=== PATIENT | male | born 1975 ===

== ENCOUNTER 2017-08-03 15:02 | Emergency (ER) | payer BC ==
--- NOTE | 2017-08-03 15:49 | ED PDOC ---
HPI: Back Time Seen by Provider: 08/03/17 15:29 Chief Complaint (Nursing): Back Pain Chief Complaint (Provider): Back pain History Per: Patient History/Exam Limitations: no limitations Onset/Duration Of Symptoms: Other (x5 months) Current Symptoms Are (Timing): Still Present Additional Complaint(s): 42 year old male presented to the ED complaining of left upper back pain radiating to the left upper chest since this morning. Patient reports he has been having back pain for the past 5 months which varies in severity and is worried about his back pain. Patient indicates he has no back pain or left upper chest pain right now and states he took motrin [employer]IST. He states he reported to this ED a couple of months ago and had obtained a upper back X-ray which had showed moderate spondolisthesis. Patient is demanding results of the previous X-ray and wants a repeat back X-ray as well as the curvature of his spine. Patient denies vomiting, diarrhea, dizziness, headache, neck pain, SOB, numbness, tingling, and any injury. No long distance travel or leg pain. PCP: no family provider Past Medical History Reviewed: Historical Data, Nursing Documentation, Vital Signs Vital Signs: Last Vital Signs Temp 98.3 F 08/03/17 15:07 Pulse 60 08/03/17 15:07 Resp 18 08/03/17 15:07 BP 121/76 08/03/17 15:07 Pulse Ox 100 08/03/17 15:07 - Medical History PMH: Hypercholesterolemia, Pneumonia - Surgical History Surgical History: Tonsillectomy - Family History Family History: States: Unknown Family Hx - Home Medications Home Medications: Ambulatory Orders Medication Instructions Recorded Albuterol 0.083% [Albuterol 0.083% 2.5 mg IH Q8 PRN #100 neb 03/29/17 Inhal An (2.5 mg/3 ml) UD] Albuterol HFA [Ventolin HFA 90 2 puff IH [id number] PRN #1 inhaler 03/29/17 mcg/actuation (8 g)] Mask, Face [Nebulizer Aerosol Mask 1 dev XX PRN PRN #1 dev 03/29/17 Adult] Nebulizer [Aeroeclipse II] 1 each MC Q8 PRN #1 each 03/29/17 Nebulizer [Aeroeclipse II] 1 each MC Q8 PRN #1 each 03/29/17 Promethazine/Codeine 5 ml PO Q12 PRN #100 ml 03/29/17 [Codeine/Promethazine 10 MG/5 Ml-6.25 MG/5 Ml] predniSONE [Prednisone] 2 tab PO DAILY #10 tab 03/29/17 - Allergies Allergies/Adverse Reactions: Allergies Allergy/AdvReac Type Severity Reaction Status Date / Time No Known Allergies Allergy Verified 08/03/17 15:07 Review of Systems ROS Statement: Except As Marked, All Systems Reviewed And Found Negative ENT: Negative for: Nose Congestion Respiratory: Negative for: Cough, Shortness of Breath Gastrointestinal: Negative for: Nausea, Vomiting, Diarrhea Musculoskeletal: Positive for: Back Pain (left upper back pain radiating to the left upper chest). Negative for: Neck Pain, Leg Pain, Other (abdominal pain or head injury) Neurological: Negative for: Numbness (or tingling), Headache, Dizziness Physical Exam - Reviewed Nursing Documentation Reviewed: Yes Vital Signs Reviewed: Yes - Physical Exam Appears: Positive for: Non-toxic, No Acute Distress Head Exam: Positive for: ATRAUMATIC Skin: Positive for: Normal Color, Warm, Dry Eye Exam: Positive for: Normal appearance Neck: Positive for: Normal, Painless ROM Cardiovascular/Chest: Positive for: Regular Rate, Rhythm. Negative for: Edema, Murmur Respiratory: Positive for: Normal Breath Sounds. Negative for: Wheezing, Respiratory Distress Gastrointestinal/Abdominal: Positive for: Normal Exam, Soft. Negative for: Tenderness Back: Positive for: Normal Inspection. Negative for: L CVA Tenderness, R CVA Tenderness Extremity: Positive for: Normal ROM. Negative for: Tenderness, Pedal Edema Neurologic/Psych: Positive for: Alert, traveling accountant II-XII, Oriented. Negative for: Motor/Sensory Deficits, Facial Droop - Laboratory Results Result Diagrams: 08/03/17 16:38 08/03/17 16:38 Interpretation Of Abn Labs: no acute - ECG ECG: Positive for: Interpreted By Me, Viewed By Me ECG Rhythm: Positive for: Normal QRS, Normal ST Segment, Sinus Rhythm O2 Sat by Pulse Oximetry: 100 (RA) Pulse Ox Interpretation: Normal - Radiology X-Ray: Interpreted by Me, Viewed By Me X-Ray Interpretation: No Acute Disease - Progress ED Course And Treament: 1737: Stable. AAOx3. Pain free. Ambulated with no issues. Medical Decision Making Medical Decision Making: Initial Impression: back pain Initial Plan: ECG CMP Troponin CBC Chest X-ray Lumbar spine X-ray Dorsal spine X-ray Scribe Attestation: Documented by Gabriel Agustin acting as a scribe for Dudley Ryan MD. Provider Scribe Attestation: All medical record entries made by the Scribe were at my direction and personally dictated by me. I have reviewed the chart and agree that the record accurately reflects my personal performance of the history, physical exam, medical decision making, and the department course for this patient. I have also personally directed, reviewed, and agree with the discharge instructions and disposition. Disposition - Clinical Impression Clinical Impression: Back pain - Patient ED Disposition Is Patient to be Admitted: No Counseled Patient/Family Regarding: Studies Performed, Diagnosis, Need For Followup - Disposition Referrals: [facility] [Outside] - 08/05/17 Disposition: Routine/Home Disposition Time: 17:37 Condition: STABLE Additional Instructions: Return if not better in 3 days. Instructions: Upper Back Pain (DC) Forms: [employer] (Tunisian), [facility] ED School/Work Excuse
[2017-08-03 16:44] LABS: BASO % 0.9 % (0.0-2.0); EOS # 0.1 K/uL (0.0-0.7); EOS % 1.9 % (0.0-4.0); HEMOGLOBIN 14.9 g/dL (12.0-18.0); LYMPH # 2.1 K/uL (1.0-4.3); LYMPH % 42.4 % (20.0-40.0); MEAN CELL VOLUME 91.1 fl (80.0-94.0); MEAN CORPUSCULAR HGB CONC 34.1 g/dL (33.0-37.0); MEAN PLATELET VOLUME 7.9 fl (7.2-11.7); MONO # 0.4 K/uL (0.0-0.8); MONO % 8.7 % (0.0-10.0); NEUT # 2.3 K/uL (1.8-7.0); NEUT % 46.1 % (50.0-75.0); NRBC % 0.1 % (0.0-0.0); RBC 4.8 Mil/uL (4.40-5.90); RED CELL DISTRIBUTION WIDTH 13.5 % (11.5-14.5); WHITE BLOOD COUNT 4.9 K/uL (4.8-10.8)
[2017-08-03 16:54] LABS: ALB/GLOB RATIO 1.3 (1.0-2.1); ALT/SGPT 39 U/L (21-72); AST/SGOT 36 U/L (17-59); BLOOD UREA NITROGEN 16 mg/dl (9-20); CALCIUM 9.2 mg/dL (8.4-10.2); GFR AFRICAN-AMERICAN > 60; GFR NON-AFRICAN AMERICAN > 60
--- NOTE | 2017-08-03 17:28 | RAD ---
HISTORY: pain COMPARISON: No prior. FINDINGS: BONES: Alignment maintained. No fracture. DISC SPACES: Limited multilevel thoracic spondylosis appreciate the mid to inferior thoracic levels with disc heights adequately preserved. SOFT TISSUES: Normal. OTHER FINDINGS: None. IMPRESSION: Mild multilevel mid to inferior thoracic spondylosis. No fracture or spondylolisthesis is encountered.
--- NOTE | 2017-08-03 17:33 | RAD ---
HISTORY: dyspnea COMPARISON: Chest radiographs 03/29/2017 TECHNIQUE: Chest PA and lateral FINDINGS: LUNGS: No active pulmonary disease. PLEURA: No significant pleural effusion identified. No pneumothorax apparent. CARDIOVASCULAR: Normal. OSSEOUS STRUCTURES: No significant abnormalities. VISUALIZED UPPER ABDOMEN: Normal. OTHER FINDINGS: None. IMPRESSION: No interval acute cardiopulmonary disease appreciated.
--- NOTE | 2017-08-03 17:33 | RAD ---
PROCEDURE: Radiographs of the Lumbar Spine. HISTORY: back pain COMPARISON: No prior. FINDINGS: BONES: Mild straightening of the normal curvature. No listhesis. No fracture. DISC SPACES: Unremarkable. OTHER FINDINGS: None. IMPRESSION: Mild straightening of normal curvature. No fracture or spondylolisthesis identified.
[2017-08-03 18:19] VITALS: BP 128/76; PULSE 78; RESP 19; TEMP 97; O2SAT 98
--- NOTE | 2017-08-04 11:20 | CARD ---
APPROVED REPORT EKG Measurement Heart [id number] <Conclusion> Sinus bradycardia Otherwise normal ECG
== END 2017-08-03 18:19 | disposition home or self-care (01) ==
LOC: H.ER 15:02
DX: M54.6 Pain in thoracic spine (principal); E78.00 Pure hypercholesterolemia, unspecified

== ENCOUNTER 2017-10-06 15:27 | Emergency (ER) | payer BC ==
[2017-10-06 15:55] VITALS: BP 135/81; PULSE 78; RESP 18; TEMP 97.9; O2SAT 99
--- NOTE | 2017-10-06 16:46 | ED PDOC ---
Lower Extremity Pain/Injury Time Seen by Provider: 10/06/17 16:00 Chief Complaint (Nursing): Lower Extremity Problem/Injury History Per: Patient History/Exam Limitations: no limitations Additional Complaint(s): 42-year-old male presents to the emergency room complaining of yellow discoloration to his bilateral big toes which she has had for the past few years. Patient states that he has seen his PMD regarding his symptoms and was told that he will need to take oral antifungal medications that could affect his liver hence he did not go forward with the treatment. Patient states that since then he has not seen a steward/stewardess bath regarding his symptoms. States he is here today because a piece of the nail of his left great toe chipped off and he would like to see any other options he can get for treatment of the fungal infection of his nails. Reports no trauma, injury, fever, chills, swelling, redness, numbness, decrease in range of motion. Past Medical History Vital Signs: Last Vital Signs Temp 97.9 F 10/06/17 15:51 Pulse 78 10/06/17 15:51 Resp 18 10/06/17 15:51 BP 135/81 10/06/17 15:51 Pulse Ox 99 10/06/17 15:51 - Medical History PMH: Hypercholesterolemia, Pneumonia - Surgical History Surgical History: Tonsillectomy - Family History Family History: States: Unknown Family Hx - Home Medications Home Medications: Ambulatory Orders Medication Instructions Recorded Albuterol 0.083% [Albuterol 0.083% 2.5 mg IH Q8 PRN #100 neb 03/29/17 Inhal An (2.5 mg/3 ml) UD] Albuterol HFA [Ventolin HFA 90 2 puff IH [id number] PRN #1 inhaler 03/29/17 mcg/actuation (8 g)] Mask, Face [Nebulizer Aerosol Mask 1 dev XX PRN PRN #1 dev 03/29/17 Adult] Nebulizer [Aeroeclipse II] 1 each MC Q8 PRN #1 each 03/29/17 Nebulizer [Aeroeclipse II] 1 each MC Q8 PRN #1 each 03/29/17 Promethazine/Codeine 5 ml PO Q12 PRN #100 ml 03/29/17 [Codeine/Promethazine 10 MG/5 Ml-6.25 MG/5 Ml] predniSONE [Prednisone] 2 tab PO DAILY #10 tab 03/29/17 - Allergies Allergies/Adverse Reactions: Allergies Allergy/AdvReac Type Severity Reaction Status Date / Time No Known Allergies Allergy Verified 08/03/17 15:07 Review of Systems Constitutional: Negative for: Fever, Chills Cardiovascular: Negative for: Chest Pain, Palpitations Respiratory: Negative for: Cough, Shortness of Breath Musculoskeletal: Positive for: Other (+Chronic fungal infection of the toenails) . Negative for: Leg Pain, Foot Pain Skin: Negative for: Rash, Lesions Physical Exam - Reviewed Vital Signs Reviewed: Yes - Physical Exam Appears: Positive for: Well, Non-toxic, No Acute Distress Skin: Positive for: Normal Color, Warm, Dry. Negative for: Rash Pulses-Dorsalis Pedis (L): 2+ Pulses-Dorsalis Pedis (R): 2+ Extremity: Positive for: Normal ROM, Capillary Refill (<2sec), Other (+ Yellow discoloration noted to the left great toe nail, left fourth and fifth nail as well as the right great toenail.). Negative for: Tenderness, Pedal Edema, Calf Tenderness, Deformity, Swelling - ECG O2 Sat by Pulse Oximetry: 99 Medical Decision Making Medical Decision Making: Diagnosis of onychomycosis discussed the patient. Advised that he should follow up with podiatry referral provided. Disposition - Clinical Impression Clinical Impression: Onychomycosis - Patient ED Disposition Is Patient to be Admitted: No Counseled Patient/Family Regarding: Diagnosis, Need For Followup - Disposition Referrals: Steve Hernandez DPM [[facility]] - Podiatry Clinic [Outside] Disposition: Routine/Home Disposition Time: 16:30 Condition: STABLE Additional Instructions: Thank you for letting us take care of you today. You were treated for onychomycosis. The emergency medical care you received today was directed at your acute symptoms. Return to the Emergency Department if your symptoms worsen , do not improve, or if you have any other problems. Please call one of the physicians/clinics you have been referred to that are listed on the Patient Visit Information form that is included in your discharge packet. Bring any paperwork you were given at discharge with you along with any medications you are taking to your follow up visit. Our treatment cannot replace ongoing medical care by a primary care provider (PCP) outside of the emergency department. Thank you for allowing the [facility] team to be part of your care today. Instructions: Fungal Nail Infections Forms: [employer] (Zambian), [facility] ED School/Work Excuse - PA / DIRECTOR OF INDUSTRIAL RELATIONS / Resident Statement MD/DO has reviewed & agrees with the documentation as recorded.
== END 2017-10-06 16:53 | disposition home or self-care (01) ==
LOC: H.ER 15:27
DX: B35.1 Tinea unguium (principal); E78.00 Pure hypercholesterolemia, unspecified

== ENCOUNTER 2017-11-11 15:42 | Emergency (ER) | payer BC ==
[2017-11-11 17:09] VITALS: BP 122/78; PULSE 60; RESP 18; TEMP 98.5; O2SAT 98
--- NOTE | 2017-11-11 18:49 | RAD ---
Date of service: 11/11/2017 HISTORY: pneumonia COMPARISON: 08/03/2017 TECHNIQUE: Chest PA and lateral FINDINGS: LUNGS: No active pulmonary disease. PLEURA: No significant pleural effusion identified. No pneumothorax apparent. CARDIOVASCULAR: No radiographic findings to suggest acute or significant cardiovascular disease. OSSEOUS STRUCTURES: No significant abnormalities. VISUALIZED UPPER ABDOMEN: Normal. OTHER FINDINGS: None. IMPRESSION: No active disease. No significant interval change compared to the prior examination(s).
--- NOTE | 2017-11-11 18:50 | ED PDOC ---
HPI: CCC, URI, Sore Throat Chief Complaint (Provider): ENT Problem History Per: Patient History/Exam Limitations: no limitations Onset/Duration Of Symptoms: Days (x2) Current Symptoms Are (Timing): Still Present Associated Symptoms: Cough. denies: Fever Additional Complaint(s): 42 year old male presents to the ED complaining of cough and irritated throat for 2 days. Patient states he has yellow phlegm but no fever. He reports having a history of pneumonia and bronchitis which is why he was concerned. States his throat looks raw. PMD: none <Katerina Regan - Last Filed: 11/11/17 19:05> <Cammie Guerra - Last Filed: 11/16/17 13:47> Time Seen by Provider: 11/11/17 16:20 Chief Complaint (Nursing): ENT Problem Past Medical History Reviewed: Historical Data, Nursing Documentation, Vital Signs Vital Signs: Last Vital Signs Temp 98.5 F 11/11/17 17:07 Pulse 60 11/11/17 17:07 Resp 18 11/11/17 17:07 BP 122/78 11/11/17 17:07 Pulse Ox 98 11/11/17 17:07 - Medical History PMH: Bronchitis, Hypercholesterolemia, Pneumonia Denies: Chronic Kidney Disease - Surgical History Surgical History: Tonsillectomy - Family History Family History: States: Unknown Family Hx <Katerina Regan - Last Filed: 11/11/17 19:05> Vital Signs: Last Vital Signs Temp 98.5 F 11/11/17 17:07 Pulse 60 11/11/17 17:07 Resp 18 11/11/17 17:07 BP 122/78 11/11/17 17:07 Pulse Ox 98 11/11/17 19:10 <Cammie Guerra - Last Filed: 11/16/17 13:47> - Home Medications Home Medications: Ambulatory Orders Medication Instructions Recorded Albuterol 0.083% [Albuterol 0.083% 2.5 mg IH Q8 PRN #100 neb 03/29/17 Inhal An (2.5 mg/3 ml) UD] Mask, Face [Nebulizer Aerosol Mask 1 dev XX PRN PRN #1 dev 03/29/17 Adult] Promethazine/Codeine 5 ml PO Q12 PRN #100 ml 03/29/17 [Codeine/Promethazine 10 MG/5 Ml-6.25 MG/5 Ml] RX: Albuterol HFA [Ventolin HFA 90 2 puff IH [id number] PRN #1 inhaler 03/29/17 mcg/actuation (8 g)] RX: Nebulizer [Aeroeclipse II] 1 each MC Q8 PRN #1 each 03/29/17 RX: Nebulizer [Aeroeclipse II] 1 each MC Q8 PRN #1 each 03/29/17 predniSONE [Prednisone] 2 tab PO DAILY #10 tab 03/29/17 Codeine Phosphate/Guaifenesin 10 ml PO BID #100 ml 11/11/17 [Guaifen-Codeine 200-20 mg/10Ml] Albuterol HFA [Ventolin HFA 90 2 puff IH [id number] #1 puff 11/13/17 mcg/actuation (8 g)] Benzonatate [Tessalon Perles] 100 mg PO Q8 #20 sgl 11/13/17 - Allergies Allergies/Adverse Reactions: Allergies Allergy/AdvReac Type Severity Reaction Status Date / Time No Known Allergies Allergy Verified 11/11/17 17:07 Review of Systems ROS Statement: Except As Marked, All Systems Reviewed And Found Negative Constitutional: Negative for: Fever ENT: Positive for: Other (Irritated throat) Respiratory: Positive for: Cough <Katerina Regan - Last Filed: 11/11/17 19:05> Physical Exam - Reviewed Nursing Documentation Reviewed: Yes Vital Signs Reviewed: Yes - Physical Exam Appears: Positive for: Non-toxic, No Acute Distress Head Exam: Positive for: ATRAUMATIC, NORMAL INSPECTION, NORMOCEPHALIC Skin: Positive for: Normal Color, Warm, Dry Eye Exam: Positive for: Normal appearance ENT: Positive for: Normal ENT Inspection Neck: Positive for: Normal, Painless ROM Cardiovascular/Chest: Positive for: Regular Rate, Rhythm. Negative for: Murmur Respiratory: Positive for: Normal Breath Sounds. Negative for: Wheezing, Respiratory Distress Extremity: Positive for: Normal ROM Neurologic/Psych: Positive for: Alert, Oriented. Negative for: Motor/Sensory Deficits <Katerina Regan - Last Filed: 11/11/17 19:05> - ECG O2 Sat by Pulse Oximetry: 98 (RA) Pulse Ox Interpretation: Normal <Katerina Regan - Last Filed: 11/11/17 19:05> Medical Decision Making Medical Decision Making: Initial Plan: --Chest X-ray --Prednisone 60mg PO --Throat culture --Rapid strep Chest X-ray showed no acute cardiopulmonary disease. (-) strep test Scribe Attestation: Documented by Gabriel Agustin acting as a scribe for Katerina NEVAREZ. Provider Scribe Attestation: All medical record entries made by the Scribe were at my direction and personally dictated by me. I have reviewed the chart and agree that the record accurately reflects my personal performance of the history, physical exam, medical decision making, and the department course for this patient. I have also personally directed, reviewed, and agree with the discharge instructions and disposition. <Katerina Regan - Last Filed: 11/11/17 19:05> Disposition - Patient ED Disposition Is Patient to be Admitted: No Counseled Patient/Family Regarding: Diagnosis, Need For Followup, Rx Given - Disposition Disposition: Routine/Home Disposition Time: 18:48 <Katerina Regan - Last Filed: 11/11/17 19:05> <Cammie Guerra - Last Filed: 11/16/17 13:47> - Clinical Impression Clinical Impression: Viral illness - Disposition Referrals: [facility] [Outside] Condition: GOOD Prescriptions: Codeine Phosphate/Guaifenesin [Guaifen-Codeine 200-20 mg/10Ml] 10 ml PO BID #100 ml Instructions: Viral Syndrome (DC) Forms: [email or web address] (Khmer), [facility] ED School/Work Excuse Addendum Addendum: 11/16/17 13:46 reviewed chart and agree with PA assessment and plan. <Cammie Guerra - Last Filed: 11/16/17 13:47>
== END 2017-11-11 18:56 | disposition home or self-care (01) ==
LOC: H.ER 15:42
DX: B34.9 Viral infection, unspecified (principal); E78.00 Pure hypercholesterolemia, unspecified

== ENCOUNTER 2017-11-13 14:09 | Emergency (ER) | payer BC ==
[2017-11-13 14:15] VITALS: RESP 18; O2SAT 99
[2017-11-13 15:41] VITALS: BP 122/68; PULSE 72; TEMP 98
--- NOTE | 2017-11-13 16:27 | ED PDOC ---
History of Present Illness History of Present Illness: Reviewed PA chart and agree. <Dudley Ryan - Last Filed: 11/14/17 16:50> HPI: Influenza Chief Complaint (Provider): Cough, Cold, Congestion History Per: Patient Exam Limitations: no limitations Onset/Duration Of Symptoms: Days Additional complaint(s):: 42 year old male presents to the ED for an evaluation of coughing, congestion, and occasional yellow sputum onset for 3 days ago. He states he also has intermittent wheezing with cough. Patient was seen in the ER two days ago and had a negative chest x-ray and was then discharged home with codeine based cough syrup. He is currently requesting another medication as he states, he didn't fill current rx bc he knows the codeine will make him sleepy and he has to work. He brings unfilled rx with him. He denies fever or difficulty breathing. <Brittany Cuenca - Last Filed: 11/13/17 19:39> <Dudley Ryan - Last Filed: 11/14/17 16:50> Time Seen by Provider: 11/13/17 14:36 Chief Complaint: Cough, Cold, Congestion Past Medical History Reviewed: Historical Data, Nursing Documentation, Vital Signs Vital Signs: Last Vital Signs Temp 97.3 F L 11/13/17 14:12 Pulse 78 11/13/17 14:12 Resp 18 11/13/17 14:12 BP 135/88 11/13/17 14:12 Pulse Ox 99 11/13/17 14:12 - Medical History PMH: Bronchitis, Hypercholesterolemia, Pneumonia Denies: Chronic Kidney Disease - Surgical History Surgical History: Tonsillectomy - Family History Family History: States: Unknown Family Hx - Social History Current smoker - smoking cessation education provided: No Alcohol: None Drugs: Denies <Brittany Cuenca S - Last Filed: 11/13/17 19:39> Vital Signs: Last Vital Signs Temp 98 F 11/13/17 15:39 Pulse 72 11/13/17 15:39 Resp 18 11/13/17 15:39 BP 122/68 11/13/17 15:39 Pulse Ox 99 11/13/17 19:43 <Dudley Ryan - Last Filed: 11/14/17 16:50> - Home Medications Home Medications: Ambulatory Orders Medication Instructions Recorded Albuterol 0.083% [Albuterol 0.083% 2.5 mg IH Q8 PRN #100 neb 03/29/17 Inhal An (2.5 mg/3 ml) UD] Mask, Face [Nebulizer Aerosol Mask 1 dev XX PRN PRN #1 dev 03/29/17 Adult] Promethazine/Codeine 5 ml PO Q12 PRN #100 ml 03/29/17 [Codeine/Promethazine 10 MG/5 Ml-6.25 MG/5 Ml] RX: Albuterol HFA [Ventolin HFA 90 2 puff IH [id number] PRN #1 inhaler 03/29/17 mcg/actuation (8 g)] RX: Nebulizer [Aeroeclipse II] 1 each MC Q8 PRN #1 each 03/29/17 RX: Nebulizer [Aeroeclipse II] 1 each MC Q8 PRN #1 each 03/29/17 predniSONE [Prednisone] 2 tab PO DAILY #10 tab 03/29/17 Codeine Phosphate/Guaifenesin 10 ml PO BID #100 ml 11/11/17 [Guaifen-Codeine 200-20 mg/10Ml] Albuterol HFA [Ventolin HFA 90 2 puff IH [id number] #1 puff 11/13/17 mcg/actuation (8 g)] Benzonatate [Tessalon Perles] 100 mg PO Q8 #20 sgl 11/13/17 - Allergies Allergies/Adverse Reactions: Allergies Allergy/AdvReac Type Severity Reaction Status Date / Time No Known Allergies Allergy Verified 11/11/17 17:07 Review of Systems ROS Statement: Except As Marked, All Systems Reviewed And Found Negative Constitutional: Negative for: Fever Respiratory: Positive for: Cough, Sputum, Wheezing. Negative for: Shortness of Breath Gastrointestinal: Negative for: Abdominal Pain Psych: Negative for: Suicidal ideation (homicidal ideation) <Brittany Cuenca - Last Filed: 11/13/17 19:39> Physical Exam - Reviewed Nursing Documentation Reviewed: Yes Vital Signs Reviewed: Yes - Physical Exam Appears: Positive for: Well, Non-toxic, No Acute Distress Head Exam: Positive for: ATRAUMATIC, NORMAL INSPECTION, NORMOCEPHALIC Skin: Positive for: Normal Color, Warm, Dry. Negative for: Rash Eye Exam: Positive for: Normal appearance ENT: Positive for: Nasal Congestion Cardiovascular/Chest: Positive for: Regular Rate, Rhythm. Negative for: Murmur Respiratory: Positive for: Normal Breath Sounds. Negative for: Decreased Breath Sounds, Wheezing, Respiratory Distress Neurologic/Psych: Positive for: Alert, Oriented (x3). Negative for: Motor/S ensory Deficits <Brittany Cuenca S - Last Filed: 11/13/17 19:39> Medical Decision Making Medical Decision Making: Time: 1436 --Patient offered nebulizer treatment but patient declined and he is requesting Albuterol prescription and cough syrup. Lungs clear, no wheeze at present but recommended albuterol given h/o wheeze at home. Upon provider evaluation patient is medically stable, and requires no further treatment in the ED at this time. Patient will be discharged with Alubuterol HFA and Tessalon Pereles 100mg. Counseling was provided and all questions were answered regarding diagnosis and there is agreement to discharge plan. Return if symptoms persist or worsen. Scribe Attestation: Documented by Sandra Bliss, acting as a scribe for Brittany Cuenca PA-C. Provider Scribe Attestation: All medical record entries made by the Scribe were at my direction and personally dictated by me. I have reviewed the chart and agree that the record accurately reflects my personal performance of the history, physical exam, medical decision making, and the department course for this patient. I have also personally directed, reviewed, and agree with the discharge instructions and disposition. <Brittany Cuenca - Last Filed: 11/13/17 19:39> - ECG O2 Sat by Pulse Oximetry: 99 (RA) Pulse Ox Interpretation: Normal <Brittany Cuenca - Last Filed: 11/13/17 19:39> Disposition - Patient ED Disposition Is Patient to be Admitted: No - Disposition Disposition: Routine/Home Disposition Time: 15:25 <Brittany Cuenca S - Last Filed: 11/13/17 19:39> <Dudley Ryan - Last Filed: 11/14/17 16:50> - Clinical Impression Clinical Impression: Bronchitis - Disposition Condition: GOOD Prescriptions: Albuterol HFA [Ventolin HFA 90 mcg/actuation (8 g)] 2 puff IH [id number] #1 puff Benzonatate [Tessalon Perles] 100 mg PO Q8 #20 sgl Instructions: Acute Bronchitis Forms: [employer] ([place]ani), [facility] ED School/Work Excuse
== END 2017-11-13 15:39 | disposition home or self-care (01) ==
LOC: H.ER 14:09
DX: J40 Bronchitis, not specified as acute or chronic (principal); E78.00 Pure hypercholesterolemia, unspecified